=== PATIENT | female | born 1985 | race Caucasian/White ===

== ENCOUNTER 2023-04-17 18:24 | Emergency (ER) | payer SELFPAY ==
[2023-04-17 18:24] VITALS: BP 141/88; PULSE 92; RESP 20; TEMP 36.8; O2SAT 99
[2023-04-17 18:30] VITALS: BP 131/76; PULSE 81
[2023-04-17] MEDS: LORazepam INJ (*CRX) 2 MG/ML VIAL 1 MG IM (19:20)
--- NOTE | 2023-04-17 19:20 | ED.GENADULT ---
HPI - General Adult General Chief complaint: Anxiety Stated complaint: anxiety Time Seen by Provider: 04/17/23 18:47 History of Present Illness HPI narrative: Marilia is a 37F with a PMH of anxiety with panic that presented to the ED with anxiety. Earlier today she started feeling anxious, worrying about everything, as well as palpitations off and on. There is no chest pain, nausea, vomiting, lightheadedness, or syncope. Related Data Home Medications Medication Instructions Recorded Confirmed propranolol 10 mg tablet 10 mg PO PRN PRN Anxiety 04/17/23 04/17/23 trazodone 50 mg tablet 50 mg PO HS 04/17/23 04/17/23 Allergies Allergy/AdvReac Type Severity Reaction Status Date / Time cefaclor [From Ceclor] Allergy Rash Verified 04/17/23 18:39 duloxetine [From Cymbalta] Allergy Hallucinati Verified 04/17/23 18:39 ng vancomycin AdvReac Rash Verified 04/17/23 18:39 Review of Systems Review of Systems: All systems reviewed & are unremarkable except as noted in HPI and below PMFSH Social History Social History Substance use type: does not use Exam Const: General: healthy appearing and no acute distress Nutritional Appearance: well nourished Orientation/consciousness: patient oriented x3 HENMT: Head: normal to inspection Ears: external ears normal Face/Nose/Sinus: Normal external nose present Eyes: Conjunctivae: conjunctivae normal Pupils: Equal, round and reactive pupils present EOM: EOMs intact bilaterally Neck: Neck: normal visual inspection Chest: Chest palpation & inspection: normal inspection of the chest Resp: Effort & Inspection: normal respiratory effort Auscultation: clear to auscultation bilaterally Cardio: Rate: regular rate Rhythm: regular rhythm GI: Inspection: non-distended Skin: General skin exam: normal color Rashes: no rashes Neuro: General: patient oriented x3 and moves all extremities Cranial nerves: Yes Nystagmus not present Extrem: General: normal to inspection Psych: Mental Status: mental status grossly normal Affect: Anxious affect present Course Course Emergency Course: Ordered IM ativan She felt much better and returned to normal after the ativan She was discharged with her home meds and given community resources for mental health Vital Signs Vital signs: Vital Signs Temperature 98.3 F 04/17/23 18:24 Pulse Rate 92 04/17/23 18:24 Respiratory Rate 20 04/17/23 18:24 Blood Pressure 141/88 H 04/17/23 18:24 Pulse Oximetry 99 04/17/23 18:24 Oxygen Delivery Room Air 04/17/23 18:24 Temperature 98.3 F 04/17/23 18:24 Pulse Rate 68 04/17/23 19:39 Respiratory Rate 18 04/17/23 19:39 Blood Pressure 138/96 H 04/17/23 19:39 Pulse Oximetry 98 04/17/23 19:39 Oxygen Delivery Room Air 04/17/23 18:30 Medical Decision Making Vital Signs Vital Signs: Vital Signs Temperature 98.3 F 04/17/23 18:24 Pulse Rate 92 04/17/23 18:24 Respiratory Rate 20 04/17/23 18:24 Blood Pressure 141/88 H 04/17/23 18:24 Pulse Oximetry 99 04/17/23 18:24 Oxygen Delivery Room Air 04/17/23 18:24 Temperature 98.3 F 04/17/23 18:24 Pulse Rate 68 04/17/23 19:39 Respiratory Rate 18 04/17/23 19:39 Blood Pressure 138/96 H 04/17/23 19:39 Pulse Oximetry 98 04/17/23 19:39 Oxygen Delivery Room Air 04/17/23 18:30 Discharge Plan Discharge Clinical Impression: Acute anxiety, Panic disorder Patient Disposition: Home, Self-Care Condition: Stable Instructions: Panic Disorder (ED) Prescriptions: No Action trazodone 50 mg Tablet 50 mg PO HS propranolol 10 mg Tablet 10 mg PO PRN PRN (Reason: Anxiety) Follow-up/Referrals: UNKNOWN,DOCTOR [Primary Care Provider] -
[2023-04-17 19:39] VITALS: BP 138/96; PULSE 68; RESP 18; O2SAT 98
== END 2023-04-17 19:57 | disposition home or self-care (01) ==
LOC: CHSED 19:51
PROVIDERS: Emergency Provider Family Medicine
DX: F41.0 Panic disorder [episodic paroxysmal anxiety] (principal)
CPT/HCPCS: 96372; 99283; J2060